=== PATIENT | female | born 1955 | race Native Hawaiian/Other Pacific Islander ===

== ENCOUNTER 2019-02-27 15:42 | Outpatient (CLI) | payer BC, OTHER | END 2019-02-27 23:28 | disposition home or self-care (01) | LOC: RAD 15:42 | DX: H92.09 Otalgia, unspecified ear (principal); Z87.828 Personal history of other (healed) physical injury and trauma; R11.2 Nausea with vomiting, unspecified; R51 Headache ==

== ENCOUNTER 2019-02-28 14:29 | Outpatient (CLI) | payer BC, OTHER | END 2019-02-28 23:40 | disposition home or self-care (01) | LOC: CT 14:29 | DX: H92.09 Otalgia, unspecified ear (principal); Z87.828 Personal history of other (healed) physical injury and trauma; R11.2 Nausea with vomiting, unspecified ==

== ENCOUNTER 2019-11-22 12:28 | Outpatient (CLI) | payer BC, OTHER | END 2019-11-22 21:39 | disposition home or self-care (01) | LOC: LAB 12:28 | DX: Z20.828 Contact with and (suspected) exposure to other viral communicable diseases (principal) ==